=== PATIENT | female | born 1955 | race Caucasian/White ===

== ENCOUNTER 2019-02-02 22:22 | Emergency (ER) | payer OTHER, SELFPAY ==
--- NOTE | 2019-02-02 22:33 | DI.RAD.S_ITS ---
PROCEDURE: XR KNEE LT 3V INDICATIONS: fall with laceration to knee TECHNIQUE: 3 views of the knee were acquired. COMPARISON: [facility], CR, XR KNEE 4+ VIEWS LEFT, 05/27/2018, 9:09. [facility], CR, XR KNEE STANDING BILATERAL, 06/07/2018, 8:05. FINDINGS: Bones: No fractures or dislocations. No suspicious bony lesions. There is an osseous density adjacent to the medial condyle of the distal femur, which has developed since 06/07/2018, likely sequela of prior injury. Tricompartmental knee joint degeneration is present,. Soft tissues: Small joint effusion. No suspicious soft tissue calcifications. IMPRESSION: 1. No acute osseous injuries. 2. Mild degenerative changes. 3. Small knee joint effusion. 4. An osseous density adjacent to the medial condyle of the distal femur likely sequelae of previous injury. Dictated by: Marilu Archibald M.D. on 02/03/2019 at 8:34 Approved by: Marilu Archibald M.D. on 02/03/2019 at 8:41
[2019-02-02 22:35] VITALS: BP 192/82; PULSE 67; RESP 16; TEMP 37.1; O2SAT 96; BMI 30.7
--- NOTE | 2019-02-02 22:56 | PC.NURSE ---
Pt declined tdap. had not remembered tetenus vaccine was in TDAP and had received one 2 years ago.
--- NOTE | 2019-02-02 23:13 | ED.LOWEXIN ---
HPI - Extremity Injury (Lower) General Chief Complaint: Extremity Injury, Lower Stated Complaint: SLIPPED ON WET FLOOR, KNEE INJURY Time Seen by Provider: 02/02/19 23:06 Source: patient Mode of arrival: Ambulatory Limitations: no limitations History of Present Illness HPI Narrative: Patient is a 63-year-old female who presents with left knee laceration. She was working up stairs when she slipped on a newly waxed floor and fell. She is ambulatory she has quite a large laceration over her patella. His her Tdap was 2 years ago. MD complaint: knee injury Onset (ago): minute(s) Related Data Allergies Allergy/AdvReac Type Severity Reaction Status Date / Time codeine Allergy Verified 02/02/19 23:13 erythromycin base Allergy Verified 02/02/19 23:13 Penicillins Allergy Verified 02/02/19 23:13 tetracycline Allergy Verified 02/02/19 23:13 NSAIDS (Non-Steroidal AdvReac Verified 02/02/19 23:13 Anti-Inflamma Review of Systems Review of Systems Narrative: GENERAL: Denies chills,fever HEENT: Denies throat pain RESPIRATORY: Denies dyspnea, cough, wheezing CARDIOVASCULAR: Denies chest pain, palpitations GASTROINTESTINAL: Denies nausea, vomiting MUSCULOSKELETAL: Denies extremity pain, injury SKIN: Laceration see HPI NEUROLOGIC: Denies weakness, dizziness, headache, numbness 8 point review of systems is negative except for those stated above and HPI Patient History Medical History (Updated 02/03/19 @ 00:37 by Afsaneh Huang DO) Hypertension (Acute) HOLCOMB (nonalcoholic steatohepatitis) (Acute) Nephrotic syndrome (Acute) Social History Smoking Status: Never smoker Substance Use Type: does not use Exam Initial Vital Signs Initial Vital Signs: Vital Signs Temperature 98.7 F 02/02/19 22:35 Pulse Rate 67 02/02/19 22:35 Respiratory Rate 16 02/02/19 22:35 Blood Pressure 192/82 H 02/02/19 22:35 Pulse Oximetry 96 02/02/19 22:35 GENERAL: Well-appearing, well-nourished and in no acute distress. CARDIOVASCULAR: peripheral pulses in tact, cap refill <2 sec RESPIRATORY: No respiratory distress, speaks in full sentences without difficulty EXTREMITIES: Normal range of motion, no clubbing or edema. Neurovascularly intact Left knee able to flex and extend. NEUROLOGICAL: Cranial nerves II through XII grossly intact. Normal gait and speech. SKIN: Cortisone to laceration 10 cm cross patella on left knee. Good skin approximation adipose tissue exposed no tendons. Procedures Laceration Repair Laceration 1: Site: lower extremity Side (If applicable): left Size (cm): 10 Description: linear Depth: simple, single layer Local Anesthetic: lidocaine 1% Amount of anesthesia used (mL): 6 Pre-repair: wound explored, irrigated extensively and deep structures intact Skin layer closed with: nylon Size (cm): 4-0 Number of sutures: 10 Orthopedic Splinting/Casting Injury #1: Side: left Lower Extremity Injury Location: knee Lower Extremity Immobilizer: knee immobilizer Post splinting neuro exam: intact Post splinting vascular exam: intact Placed by: Nursing Course Orders Ordered: ED Orders 02/02/19 22:33 XR knee LT 3V Stat Discontinued Medications Diphtheria/Tetanus/Acell Pertussis (Adacel) 0.5 ml IM .ONCE ONE Stop: 02/02/19 22:35 Last Admin: 02/02/19 22:55 Dose: Not Given Documented by: RONALDO Lidocaine HCl (Xylocaine 1% (Pf)) 6 ml SUBCUT NOW ONE Stop: 02/02/19 23:26 Last Admin: 02/02/19 23:34 Dose: 6 ml Documented by: RONALDO Vital Signs Vital signs: Vital Signs - 8 hr 02/02/19 22:35 02/03/19 00:55 Temperature 98.7 F Pulse Rate 67 55 L Respiratory Rate 16 15 Blood Pressure 192/82 H 161/96 H Pulse Oximetry 96 99 MDM - Extremity Injury (Lower) Imaging Data left knee XR: Attestation: I personally reviewed and interpreted this imaging study as follows: My impression: No acute fracture MDM Narrative Medical decision making narrative: Patient given knee immobilizer to prevent excessive bending and opening of the laceration. Discharge Plan Departure Patient Disposition: Home Clinical Impression: Laceration of knee, left Qualifiers: Encounter type: initial encounter Qualified Code(s): S81.012A - Laceration without foreign body, left knee, initial encounter Discharge Date/Time: 02/03/19 00:56 Instructions: DI for Laceration Repair Activity Restrictions/Additional Instructions: 1. Have your suture removed in 5-7 days, you may go to walk-in clinic, return to the ER or call your primary care physician. 2. No soaking in water including dishes, bathtubs, Lakes, swimming pools etc 3. Signs of infection include, but not limited to, increased redness, increased swelling, increased pain, fever and purulent drainage, if the symptoms should arise, you may need an antibiotic and you should have a reevaluation either by your primary care provider or by the emergency department. Referrals: Ashleigh Solano MD [Primary Care Provider] -
[2019-02-02] MEDS: LIDOCAINE 1% (PF) 6 ML SUBCUT (23:34)
--- NOTE | 2019-02-03 00:54 | PC.NURSE ---
Pt's wound was secured with steristrips between the sutures. Telfa pad applied secured with kerlix and tape.
[2019-02-03 00:55] VITALS: BP 161/96; PULSE 55; RESP 15; O2SAT 99
== END 2019-02-03 00:56 | disposition home or self-care (01) ==
PROVIDERS: Emergency Provider Emergency Medicine; Family Provider Internal Medicine Geriatric Medicine; PCP Internal Medicine Geriatric Medicine
DX: S81.012A Laceration without foreign body, left knee, initial encounter (principal); W01.0XXA Fall on same level from slipping, tripping and stumbling without subsequent striking against object, initial encounter; Y99.0 Civilian activity done for income or pay
CPT/HCPCS: 12004; 73562; 99282; 99283; 90715